=== PATIENT | female | born 1985 | race Caucasian/White ===

== ENCOUNTER 2017-09-08 11:30 | Emergency (ER) | payer BC, MEDICAID ==
[2017-09-08] MEDS ORDERED: Sodium Chloride 0.9% 1000 ML 1,000 ML IV STA (12:14)
--- NOTE | 2017-09-08 12:14 | ERPHSYRPT ---
- History of Present Illness Time Seen by Provider: 09/08/17 11:59 Source: patient Exam Limitations: no limitations Patient Subjective Stated Complaint: Vomiting x2 episodes, diarrhea since Tuesday. Triage Nursing Assessment: Pt presents to the ED with complaints of emsis x2 episode in last week, and diarrhea since Tuesday. Pt states she recently returned form the [facility]. Pt states she is 14-16 weeks and told by OB to come to ED. No distress noted, skin PWD. Physician History: Patient is a 31-year-old female at 14-16 weeks complaining of traveling to the [facility] last week and having 2 episodes of vomiting last Tuesday. Diarrhea began last Tuesday with 5-6 a day. The diarrhea continues but the vomiting has ceased. The patient call her OB doctor about the diarrhea and the travel. Her OB told her to come to the emergency room. Her past medical history is unremarkable. Timing/Duration: day(s) (4), sudden Severity: moderate Modifying Factors: Improves With: eating (eating makes diarrhea worse) Associated Symptoms: vomiting, other (diarrhea), No abdominal pain Allergies/Adverse Reactions: No Known Drug Allergies Allergy (Verified 09/08/17 11:41) Home Medications: Vits W-Ca,Fe,FA(<1Mg) [] 1 each PO DAILY 09/08/17 [History] Immunizations Up to Date: Yes - Review of Systems Constitutional: No Fever, No Chills Eyes: No Symptoms Ears, Nose, & Throat: No Symptoms Respiratory: No Cough, No Dyspnea Cardiac: No Chest Pain, No Edema, No Syncope Abdominal/Gastrointestinal: Vomiting, Diarrhea Genitourinary Symptoms: No Dysuria Musculoskeletal: No Back Pain, No Neck Pain Skin: No Rash Neurological: No Dizziness, No Focal Weakness, No Sensory Changes Psychological: No Symptoms Endocrine: No Symptoms Hematologic/Lymphatic: No Symptoms Immunological/Allergic: No Symptoms All Other Systems: Reviewed and Negative - Past Medical History Pertinent Past Medical History: No Neurological History: No Pertinent History ENT History: No Pertinent History Cardiac History: No Pertinent History Respiratory History: No Pertinent History Endocrine Medical History: No Pertinent History Musculoskeletal History: No Pertinent History GI Medical History: No Pertinent History History: No Pertinent History Psycho-Social History: No Pertinent History Female Reproductive Disorders: No Pertinent History - Past Surgical History Past Surgical History: Yes Neuro Surgical History: No Pertinent History Cardiac: No Pertinent History Respiratory: No Pertinent History Gastrointestinal: No Pertinent History Genitourinary: No Pertinent History Musculoskeletal: No Pertinent History Female Surgical History: No Pertinent History - Social History Smoking Status: Never smoker Exposure to second hand smoke: No Drug Use: none Patient Lives Alone: No - Female History Hx Now: Yes - Nursing Vital Signs Nursing Vital Signs: Initial Vital Signs Temperature 97.9 F 09/08/17 11:37 Pulse Rate 95 H 09/08/17 11:37 Respiratory Rate 16 09/08/17 11:37 Blood Pressure 136/81 09/08/17 11:37 O2 Sat by Pulse Oximetry 100 09/08/17 11:37 Pain Scale Pain Intensity 0 - Physical Exam General Appearance: no apparent distress, alert Eye Exam: PERRL/EOMI, eyes nml inspection Ears, Nose, Throat Exam: normal ENT inspection, TMs normal, pharynx normal, moist mucous membranes Neck Exam: normal inspection, non-tender, supple, full range of motion Respiratory Exam: normal breath sounds, lungs clear, No respiratory distress Cardiovascular Exam: regular rate/rhythm, normal heart sounds, normal peripheral pulses Gastrointestinal/Abdomen Exam: soft, normal bowel sounds, No tenderness, No mass Pelvic Exam: not done Rectal Exam: not done Back Exam: normal inspection, normal range of motion, No CVA tenderness, No vertebral tenderness Extremity Exam: normal inspection, normal range of motion, pelvis stable Neurologic Exam: alert, oriented x 3, cooperative, normal mood/affect, nml cerebellar function, nml station & gait, sensation nml, No motor deficits Skin Exam: normal color, warm, dry, No rash Lymphatic Exam: No adenopathy SpO2 Interpretation: normal SpO2: 100 Oxygen Delivery: Room Air Ordered Tests: Active Orders 24 hr Category Date Time Status Heart Tones-ED STAT Care 09/08/17 12:19 Active IV Insertion STAT Care 09/08/17 12:14 Active Orthostatic Vital Signs STAT Care 09/08/17 12:14 Active BMP Stat Lab 09/08/17 12:25 Completed CBC W DIFF Stat Lab 09/08/17 12:25 Completed Manual Differential NC Stat Lab 09/08/17 12:25 Completed UA W/RFX UR CULTURE Stat Lab 09/08/17 12:25 Completed Medication Summary Discontinued Medications Generic Name Dose Route Start Last Admin Trade Name Freq PRN Reason Stop Dose Admin Sodium Chloride 1,000 mls @ 999 mls/hr 09/08/17 12:14 09/08/17 12:25 Sodium Chloride 0.9% 1000 Ml IV 09/08/17 13:14 999 mls/hr .Q1H1M STA Administration Sodium Chloride Confirm 09/08/17 12:22 Sodium Chloride 0.9% 1000 Ml Administered 09/08/17 12:23 Dose 1,000 mls @ ud .ROUTE .STK-MED ONE Lab/Rad Data: Laboratory Result Diagrams 09/08/17 12:25 09/08/17 12:25 Laboratory Results 09/08/17 09/08/17 09/08/17 Range/Units 12:25 12:25 12:25 WBC 7.0 (4.0-10.5) K/mm3 RBC 3.72 L (4.1-5.4) M/mm3 Hgb 12.1 (12.0-16.0) gm/dl Hct 34.5 L (35-47) % MCV 92.7 (78-100) fl MCH 32.5 H (26-32) pg MCHC 35.1 (32-36) g/dl RDW 12.4 (11.5-14.0) % Plt Count 237 (150-450) K/mm3 MPV 10.6 H (6-9.5) fl Absolute Granulocytes 5.38 (1.4-6.9) Sodium 140 (137-145) mmol/L Potassium 3.7 (3.5-5.1) mmol/L Chloride 104 (98-107) mmol/L Carbon Dioxide 23 (22-30) mmol/L Anion Gap 16.6 H (5-15) MEQ/L BUN 7 (7-17) mg/dL Creatinine 0.60 (0.52-1.04) mg/dL Estimated GFR > 60.0 ML/MIN Glucose 106 (74-106) mg/dL Calcium 9.0 (8.4-10.2) mg/dL Ur Collection Type VOID Urine Color YELLOW (YELLOW) Urine Appearance CLEAR (CLEAR) Urine pH 7.0 (5-6) Ur Specific [place] 1.005 (1.005-1.025) Urine Protein NEGATIVE (Negative) Urine Ketones NEGATIVE (NEGATIVE) Urine Blood NEGATIVE (0-5) Georgi/ul Urine Nitrite NEGATIVE (NEGATIVE) Urine Bilirubin NEGATIVE (NEGATIVE) Urine Urobilinogen NORMAL (0-1) mg/dL Ur Leukocyte Esterase NEGATIVE (NEGATIVE) Urine Culture Reflexed NO (NO) Urine Glucose NEGATIVE (NEGATIVE) mg/dL Specimen Received 09/08/17 1220 - Progress Progress: improved Progress Note: 09/08/17 12:21 FHT in 150s BPM. Counseled pt/family regarding: lab results, diagnosis, need for follow-up - Departure Time of Disposition: 13:31 Departure Disposition: Home Clinical Impression: Travelers' diarrhea Condition: Stable Critical Care Time: No Referrals: ANDI MATHUR [Primary Care Provider] - Additional Instructions: You have diarrhea after traveling to the [facility]. You were given fluids by IV in the ER. Take azithromycin 1000 mg once. Stay well hydrated. Begin with a fluid diet and advance as tolerated. Follow-up with your primary medical doctor or OB doctor if no improvement within 1-2 days. Prescriptions: Azithromycin 1,000 mg PO DAILY #1 tablet
[2017-09-08] MEDS ORDERED: Sodium Chloride 0.9% 1000 ML 1,000 ML ONE (12:22)
[2017-09-08 12:25] LABS: Granulocyte Absolute (ANC) 5.38 (1.4-6.9); Hematocrit 34.5 % (35-47); Hemoglobin 12.1 gm/dl (12.0-16.0); Mean Cell Volume 92.7 fl (78-100); Mean Corpuscular Hemoglobin 32.5 pg (26-32); Mean Corpuscular Hgb Concent. 35.1 g/dl (32-36); Mean Platelet Volume 10.6 fl (6-9.5); Platelet Count 237 K/mm3 (150-450); Red Blood Count 3.72 M/mm3 (4.1-5.4); Red Cell Distribution Width 12.4 % (11.5-14.0)
[2017-09-08 12:29] LABS: Appearance CLEAR (CLEAR)
[2017-09-08 12:30] LABS: Bilirubin NEGATIVE (NEGATIVE); Blood NEGATIVE Ery/ul (0-5); Glucose NEGATIVE (NEGATIVE); Ketones NEGATIVE (NEGATIVE); Leukocyte Esterase NEGATIVE (NEGATIVE); Nitrite NEGATIVE (NEGATIVE); Protein,Urine Dip NEGATIVE (Negative); Specific Gravity 1.005 (1.005-1.025); Urobilinogen NORMAL mg/dL (0-1)
[2017-09-08 12:42] LABS: ANION GAP 16.6 MEQ/L (5-15); BLOOD UREA NITROGEN 7 mg/dL (7-17); CHLORIDE 104 mmol/L (98-107); Carbon Dioxide 23 mmol/L (22-30); Glucose 106 mg/dL (74-106); Potassium 3.7 mmol/L (3.5-5.1); SODIUM 140 mmol/L (137-145)
[2017-09-08 13:32] VITALS: BP 119/69; PULSE 97
[2017-09-08 13:36] VITALS: O2SAT 100
[2017-09-08 14:59] LABS: Lymphocytes 18 % (24-44); Neutrophils 82 % (36.0-66.0); Total Cells Counted 100
[2017-09-08 15:00] LABS: Platelet Estimate NORMAL (NORMAL)
== END 2017-09-08 13:55 | disposition home or self-care (01) ==
LOC: ED 11:30
DX: O26.892 Other specified pregnancy related conditions, second trimester (principal); Z3A.00 Weeks of gestation of pregnancy not specified; R19.7 Diarrhea, unspecified
CPT/HCPCS: 36000; 36415; 80048; 81002; 85025; 96360; 99284

== ENCOUNTER 2018-11-20 12:14 | Emergency (ER) | payer MEDICAID ==
--- NOTE | 2018-11-20 12:32 | ERPHSYRPT ---
- History of Present Illness Time Seen by Provider: 11/20/18 12:27 Source: patient Exam Limitations: no limitations Physician History: 33 y/o active white female presents with soa and mild substernal cp. sx intermittent for a couple of days. pt states today sx of soa is not resolving. pt does complain of bilat calf tenderness. pt has no known cardiac dz and no bleeding or clotting d/o. she does not have any drug allergies and is not on any medication. she has never had this before Timing/Duration: day(s) (2) Activities at Onset: none Severity of Dyspnea-Max: mild Severity of Dyspnea-Current: mild Possible Cause: no prior episodes Modifying Factors: Improves With: nothing Associated Symptoms: chest pain/discomfort (mild nonradiating), calf pain (mild bilat), No cough, No leg swelling Allergies/Adverse Reactions: No Known Drug Allergies Allergy (Verified 11/20/18 12:30) Home Medications: No Reportable Medications [No Reported Medications] 11/20/18 [History] - Review of Systems Constitutional: No Symptoms Eyes: No Symptoms Ears, Nose, & Throat: No Symptoms Respiratory: Dyspnea Cardiac: Chest Pain Abdominal/Gastrointestinal: Nausea, No Abdominal Pain, No Vomiting Genitourinary Symptoms: No Symptoms Musculoskeletal: Other (bilat calf pain) Skin: No Symptoms Neurological: No Symptoms Psychological: No Symptoms Endocrine: No Symptoms Hematologic/Lymphatic: No Symptoms Immunological/Allergic: No Symptoms All Other Systems: Reviewed and Negative - Past Medical History Pertinent Past Medical History: No Neurological History: No Pertinent History ENT History: No Pertinent History Cardiac History: No Pertinent History Respiratory History: No Pertinent History Endocrine Medical History: No Pertinent History Musculoskeletal History: No Pertinent History GI Medical History: No Pertinent History History: No Pertinent History Psycho-Social History: No Pertinent History Female Reproductive Disorders: No Pertinent History - Past Surgical History Past Surgical History: Yes Neuro Surgical History: No Pertinent History Cardiac: No Pertinent History Respiratory: No Pertinent History Gastrointestinal: No Pertinent History Genitourinary: No Pertinent History Musculoskeletal: No Pertinent History Female Surgical History: No Pertinent History - Social History Smoking Status: Never smoker Exposure to second hand smoke: No Drug Use: none Patient Lives Alone: No - Nursing Vital Signs Nursing Vital Signs: Initial Vital Signs Temperature 97.7 F 11/20/18 12:17 Pulse Rate 78 11/20/18 12:17 Respiratory Rate 24 11/20/18 12:17 Blood Pressure 153/83 11/20/18 12:17 O2 Sat by Pulse Oximetry 100 11/20/18 12:17 Pain Scale Pain Intensity 2 - Physical Exam General Appearance: mild distress, alert, anxiety Eye Exam: PERRL/EOMI, eyes nml inspection Ears, Nose, Throat Exam: hearing grossly normal, normal ENT inspection, normal pharynx Neck Exam: normal inspection, non-tender, supple, full range of motion Respiratory Exam: normal breath sounds, chest tenderness, lungs clear, airway intact, No respiratory distress Cardiovascular/Chest Exam: normal heart sounds, regular rate/rhythm, normal peripheral pulses Abdominal/Gastrointestinal Exam: soft, normal bowel sounds, No tenderness Rectal Exam: not done Extremity Exam: non-tender, normal range of motion, normal inspection Neurologic Exam: alert, oriented x 3, cooperative, automatic nailing machine feeder II-XII nml as tested, nml cerebellar function, nml station & gait Skin Exam: normal color, warm, dry Lymphatic Exam: No adenopathy SpO2 Interpretation: normal O2 Delivery: Room Air - Course Nursing assessment & vital signs reviewed: Yes EKG Interpreted by Me: RATE (82), Sinus Rhythm, NORMAL AXIS, NORMAL INTERVALS, NORMAL QRS Ordered Tests: Active Orders 24 hr Category Date Time Status Floor Scraper STAT Care 11/20/18 12:33 Active EKG-ER Only STAT Care 11/20/18 12:32 Active IV Insertion STAT Care 11/20/18 12:32 Active Pulse Oximetry (ED) STAT Care 11/20/18 12:32 Active CHEST 1 VIEW (PORTABLE) Stat Exams 11/20/18 12:33 Completed HEAD WITHOUT CONTRAST [CT] Stat Exams 11/20/18 13:10 Completed CBC W DIFF Stat Lab 11/20/18 12:30 Completed CMP Stat Lab 11/20/18 12:30 Completed D-DIMER QUANTITATION Stat Lab 11/20/18 12:30 Completed HCG,QUALITATIVE URINE Stat Lab 11/20/18 13:20 Completed NT PRO BNP Stat Lab 11/20/18 12:30 Completed TROPONIN Q3H Lab 11/20/18 12:30 Completed TROPONIN Q3H Lab 11/20/18 15:45 Ordered TROPONIN Q3H Lab 11/20/18 18:45 Ordered TROPONIN Q3H Lab 11/20/18 21:45 Ordered TROPONIN Q3H Lab 11/21/18 00:45 Ordered UA W/RFX UR CULTURE Stat Lab 11/20/18 13:20 Completed Medication Summary Discontinued Medications Generic Name Dose Route Start Last Admin Trade Name Kathya PRN Reason Stop Dose Admin Sodium Chloride 1,000 mls @ 999 mls/hr 11/20/18 13:10 11/20/18 13:13 Sodium Chloride 0.9% 1000 Ml IV 11/20/18 14:10 999 mls/hr .Q1H1M STA Administration Sodium Chloride Confirm 11/20/18 13:11 Sodium Chloride 0.9% 1000 Ml Administered 11/20/18 13:12 Dose 1,000 mls @ ud .ROUTE .STK-MED ONE Lab/Rad Data: Laboratory Result Diagrams 11/20/18 12:30 11/20/18 12:30 Laboratory Results 11/20/18 11/20/18 11/20/18 Range/Units 13:20 13:20 12:30 WBC (4.0-10.5) K/mm3 RBC (4.1-5.4) M/mm3 Hgb (12.0-16.0) gm/dl Hct (35-47) % MCV (78-100) fl MCH (26-32) pg MCHC (32-36) g/dl RDW (11.5-14.0) % Plt Count (150-450) K/mm3 MPV (6-9.5) fl Gran % (36.0-66.0) % Eos # (Auto) (0-0.5) Absolute Lymphs (auto) (1.0-4.6) Absolute Monos (auto) (0.0-1.3) Lymphocytes % (24.0-44.0) % Monocytes % (0.0-12.0) % Eosinophils % (0.00-5.0) % Basophils % (0.0-0.4) % Absolute Granulocytes (1.4-6.9) Basophils # (0-0.4) D-Dimer (215-500) ng/mL Sodium (137-145) mmol/L Potassium (3.5-5.1) mmol/L Chloride (98-107) mmol/L Carbon Dioxide (22-30) mmol/L Anion Gap (5-15) MEQ/L BUN (7-17) mg/dL Creatinine (0.52-1.04) mg/dL Estimated GFR ML/MIN Glucose (74-106) mg/dL Calcium (8.4-10.2) mg/dL Total Bilirubin (0.2-1.3) mg/dL AST (14-36) U/L ALT (0-35) U/L Alkaline Phosphatase (38-126) U/L Troponin I < 0.012 (0.000-0.034) ng/mL NT-Pro-B Natriuret Pep (0-450) pg/mL Serum Total Protein (6.3-8.2) g/dL Albumin (3.5-5.0) g/dL Urine Color STRAW (YELLOW) Urine Appearance CLEAR (CLEAR) Urine pH 8.0 (5-6) Ur Specific [place] 1.003 (1.005-1.025) Urine Protein NEGATIVE (Negative) Urine Ketones NEGATIVE (NEGATIVE) Urine Blood LARGE (0-5) Georgi/ul Urine Nitrite NEGATIVE (NEGATIVE) Urine Bilirubin NEGATIVE (NEGATIVE) Urine Urobilinogen NEGATIVE (0-1) mg/dL Ur Leukocyte Esterase NEGATIVE (NEGATIVE) Urine WBC (Auto) NONE (0-5) /HPF Urine RBC (Auto) 6-10 (0-2) /HPF U Epithel Cells (Auto) NONE (FEW) /HPF Urine Bacteria (Auto) NONE (NEGATIVE) /HPF Urine Culture Reflexed NO (NO) Urine Glucose NEGATIVE (NEGATIVE) mg/dL Urine HCG, Qual NEGATIVE (Negative) 11/20/18 11/20/18 11/20/18 Range/Units 12:30 12:30 12:30 WBC 6.5 (4.0-10.5) K/mm3 RBC 4.46 (4.1-5.4) M/mm3 Hgb 14.4 (12.0-16.0) gm/dl Hct 42.2 (35-47) % MCV 94.6 (78-100) fl MCH 32.3 H (26-32) pg MCHC 34.1 (32-36) g/dl RDW 12.1 (11.5-14.0) % Plt Count 265 (150-450) K/mm3 MPV 10.6 H (6-9.5) fl Gran % 64.2 (36.0-66.0) % Eos # (Auto) 0.09 (0-0.5) Absolute Lymphs (auto) 1.55 (1.0-4.6) Absolute Monos (auto) 0.62 (0.0-1.3) Lymphocytes % 24.0 (24.0-44.0) % Monocytes % 9.6 (0.0-12.0) % Eosinophils % 1.4 (0.00-5.0) % Basophils % 0.8 (0.0-0.4) % Absolute Granulocytes 4.16 (1.4-6.9) Basophils # 0.05 (0-0.4) D-Dimer 354 (215-500) ng/mL Sodium 142 (137-145) mmol/L Potassium 4.1 (3.5-5.1) mmol/L Chloride 106 (98-107) mmol/L Carbon Dioxide 27 (22-30) mmol/L Anion Gap 13.6 (5-15) MEQ/L BUN 10 (7-17) mg/dL Creatinine 1.06 H (0.52-1.04) mg/dL Estimated GFR > 60.0 ML/MIN Glucose 94 (74-106) mg/dL Calcium 9.2 (8.4-10.2) mg/dL Total Bilirubin 0.70 (0.2-1.3) mg/dL AST 19 (14-36) U/L ALT 13 (0-35) U/L Alkaline Phosphatase 46 (38-126) U/L Troponin I (0.000-0.034) ng/mL NT-Pro-B Natriuret Pep 67.0 (0-450) pg/mL Serum Total Protein 7.7 (6.3-8.2) g/dL Albumin 4.5 (3.5-5.0) g/dL Urine Color (YELLOW) Urine Appearance (CLEAR) Urine pH (5-6) Ur Specific [place] (1.005-1.025) Urine Protein (Negative) Urine Ketones (NEGATIVE) Urine Blood (0-5) Georgi/ul Urine Nitrite (NEGATIVE) Urine Bilirubin (NEGATIVE) Urine Urobilinogen (0-1) mg/dL Ur Leukocyte Esterase (NEGATIVE) Urine WBC (Auto) (0-5) /HPF Urine RBC (Auto) (0-2) /HPF U Epithel Cells (Auto) (FEW) /HPF Urine Bacteria (Auto) (NEGATIVE) /HPF Urine Culture Reflexed (NO) Urine Glucose (NEGATIVE) mg/dL Urine HCG, Qual (Negative) - Progress Progress: unchanged Air Movement: good Progress Note: 11/20/18 14:22 cxr-no acute process. ct head-no acute process. Blood Culture(s) Obtained: No Antibiotics given: No Counseled pt/family regarding: lab results, diagnosis, need for follow-up, rad results - Departure Departure Disposition: Home Clinical Impression: Shortness of breath, Dizziness Condition: Stable Critical Care Time: No Additional Instructions: drink plenty of fluids. follow up with primary doctor for further management
[2018-11-20 12:47] LABS: BASOPHIL % 0.8 % (0.0-0.4); Basophil (Absolute #) 0.05 (0-0.4); Eosinophil % 1.4 % (0.00-5.0); Eosinophil (Absolute #) 0.09 (0-0.5); Granulocyte Absolute (ANC) 4.16 (1.4-6.9); Granulocytes % 64.2 % (36.0-66.0); Hematocrit 42.2 % (35-47); Hemoglobin 14.4 gm/dl (12.0-16.0); Lymphocyte (Absolute #) 1.55 (1.0-4.6); Mean Cell Volume 94.6 fl (78-100); Mean Corpuscular Hemoglobin 32.3 pg (26-32); Mean Corpuscular Hgb Concent. 34.1 g/dl (32-36); Mean Platelet Volume 10.6 fl (6-9.5); Monocyte (Absolute #) 0.62 (0.0-1.3); Monocytes % 9.6 % (0.0-12.0); Platelet Count 265 K/mm3 (150-450); Red Blood Count 4.46 M/mm3 (4.1-5.4); Red Cell Distribution Width 12.1 % (11.5-14.0); White Blood Count 6.5 K/mm3 (4.0-10.5)
--- NOTE | 2018-11-20 12:52 | XRAY ---
Indication: Short of breath. Comparison: None Portable chest is limited as the right apex not completely included in the [id number]. Otherwise normal heart, lungs, and bony thorax.
[2018-11-20 13:10] LABS: ALBUMIN 4.5 g/dL (3.5-5.0); ALKALINE PHOSPHATASE 46 U/L (38-126); ANION GAP 13.6 MEQ/L (5-15); BLOOD UREA NITROGEN 10 mg/dL (7-17); CHLORIDE 106 mmol/L (98-107); Calcium 9.2 mg/dL (8.4-10.2); Carbon Dioxide 27 mmol/L (22-30); Creatinine 1 1.06 mg/dL (0.52-1.04); Glucose 94 mg/dL (74-106); Potassium 4.1 mmol/L (3.5-5.1); SGOT/AST 19 U/L (14-36); SGPT/ALT 13 U/L (0-35); SODIUM 142 mmol/L (137-145); Total Protein 7.7 g/dL (6.3-8.2)
[2018-11-20] MEDS ORDERED: Sodium Chloride 0.9% 1000 ML 1,000 ML IV STA (13:10)
[2018-11-20] MEDS ORDERED: Sodium Chloride 0.9% 1000 ML 1,000 ML ONE (13:11)
[2018-11-20 13:28] LABS: Appearance CLEAR (CLEAR); Bilirubin NEGATIVE (NEGATIVE); Blood LARGE Ery/ul (0-5); Glucose NEGATIVE (NEGATIVE); Ketones NEGATIVE (NEGATIVE); Leukocyte Esterase NEGATIVE (NEGATIVE); Nitrite NEGATIVE (NEGATIVE); Protein,Urine Dip NEGATIVE (Negative); Specific Gravity 1.003 (1.005-1.025); Urobilinogen NEGATIVE mg/dL (0-1)
--- NOTE | 2018-11-20 13:35 | XRAY ---
Indication: Dizziness 2-3 days. Chronic headaches. Multiple contiguous axial images obtained through the head without contrast. Comparison: None Normal appearing brain parenchyma, ventricles, and bony calvarium. Visualized paranasal sinuses and mastoid air cells are clear. Impression: Normal CT head without contrast exam. CT DI 70.98
[2018-11-20 14:44] VITALS: BP 130/75; PULSE 72; O2SAT 98
== END 2018-11-20 14:47 | disposition home or self-care (01) ==
LOC: ED 12:14
DX: R06.02 Shortness of breath (principal); R42 Dizziness and giddiness
CPT/HCPCS: 36000; 36415; 70450; 71045; 80053; 81001; 83880; 84484; 84703; 85025; 85379; 93005; 93041; 94760; 96360; 99284